=== PATIENT | male | born 1975 | race Caucasian/White ===

== ENCOUNTER 2021-03-04 18:01 | Emergency (ER) | payer OTHER ==
[2021-03-04 18:44] LABS: BASOPHIL 0.5 % (0-2); EOSINOPHIL 0.4 % (0-5); HCT 45.2 % (42.0-52.0); HGB 16.1 g/dl (13.2-18.0); LYMPHOCYTE 15.5 % (15-48); MCH 31.4 pg (25.0-31.0); MCHC 35.6 g/dL (32.0-36.0); MCV 88.3 fL (78.0-100.0); MONOCYTE 3.5 % (0-12); MPV 9.2 fL (6.0-9.5); NEUTROPHIL 79.7 % (41-80); NRBC 0; PLT 445 K/uL (150-400); RBC 5.12 M/uL (4.70-6.00); RDW 11.9 % (11.5-14.0)
[2021-03-04 18:48] LABS: BILIRUBIN NEGATIVE (NEGATIVE); BLOOD NEGATIVE Ery/uL (NEGATIVE); CLARITY CLEAR (CLEAR); COLOR YELLOW (YELLOW); GLUCOSE (U) NORMAL (NORMAL); LEUKOCYTES NEGATIVE Leu/uL (NEGATIVE); NITRITE NEGATIVE (NEGATIVE); PROTEIN NEGATIVE (NEGATIVE); SPECIFIC GRAVITY >=1.030 (1.001-1.030); UROBILINOGEN 0.2 mg/dL (0.2-1.0)
[2021-03-04 19:23] LABS: BUN/CREAT RATIO (CALC) 10.3 RATIO; CREATININE 1.07 mg/dL (0.67-1.17); POTASSIUM 3.9 mmol/L (3.5-5.1)
[2021-03-04 20:52] LABS: BILIRUBIN - TOTAL 1.8 mg/dL (0.2-1.0)
[2021-03-04] MEDS ORDERED: PERCOCET 7.5/321 TAB PO (21:15)
[2021-03-04] MEDS ORDERED: ZOFRAN4 M1 PO (21:15)
== END 2021-03-04 21:40 | disposition home or self-care (01) ==
LOC: FER 18:01
PROVIDERS: Nurse Practitioner Family
DX: K80.80 Other cholelithiasis without obstruction (principal); I10 Essential (primary) hypertension
CPT/HCPCS: 36415; 80048; 81003; 82247; 84450; 84460; 85025; J1885; J2405; J7030

== ENCOUNTER → 2021-04-05 | Day surgery (SDC) | payer OTHER ==
[~2021-04-05] VITALS: Ht 185.4 cm; Wt 161.0 kg
[~2021-04-05] MED LIST: ASPIRIN EC81 MG PO; ONDANSETRON ODT4 MG PO; PERCOCET 7.5/321 TAB PO; PRINIVIL20 MG PO; ZOFRAN4 M1 PO
[2021-04-05 10:03] LABS: ALBUMIN 4.2 g/dL (3.4-5.0); BILIRUBIN - TOTAL 1.5 mg/dL (0.2-1.0); BUN/CREAT RATIO (CALC) 10.6 RATIO; CREATININE 1.13 mg/dL (0.67-1.17); GLOBULIN (CALCULATION) 3.5 g/dL; POTASSIUM 3.8 mmol/L (3.5-5.1); TOTAL PROTEIN 7.7 g/dL (6.4-8.2)
== END | disposition home or self-care (01) ==
LOC: FAS 08:53
PROVIDERS: Surgery
DX: K80.10 Calculus of gallbladder with chronic cholecystitis without obstruction (principal); I10 Essential (primary) hypertension; Z91.041 Radiographic dye allergy status; Z79.82 Long term (current) use of aspirin; K76.0 Fatty (change of) liver, not elsewhere classified; R94.31 Abnormal electrocardiogram [ECG] [EKG]; E80.4 Gilbert syndrome; G47.30 Sleep apnea, unspecified; E66.9 Obesity, unspecified; Z68.42 Body mass index [BMI] 45.0-49.9, adult
CPT/HCPCS: 36415; 80053; 93005; J0295; J0690; J1170; J1885; J2250; J2405; J2550; J2704; J2710; J3010; J7120; Q9967

== ENCOUNTER 2021-04-07 10:41 | Emergency (ER) | payer OTHER ==
[~2021-04-07] VITALS: Ht 182.9 cm; Wt 158.8 kg
[2021-04-07 11:31] LABS: BASOPHIL 0.3 % (0-2); EOSINOPHIL 0.1 % (0-5); HCT 47.6 % (42.0-52.0); HGB 16.7 g/dl (13.2-18.0); LYMPHOCYTE 5.7 % (15-48); MCHC 35.1 g/dL (32.0-36.0); MCV 88.3 fL (78.0-100.0); MONOCYTE 5.4 % (0-12); MPV 9.2 fL (6.0-9.5); NEUTROPHIL 88.1 % (41-80); NRBC 0; PLT 408 K/uL (150-400); RBC 5.39 M/uL (4.70-6.00); RDW 12.4 % (11.5-14.0); WBC 14.3 K/uL (4.0-10.5)
[2021-04-07 11:41] LABS: INR 1.05 (0.9-1.2); PROTHROMBIN TIME 13.1 SECONDS (11.8-13.4)
[2021-04-07 11:57] LABS: BILIRUBIN - TOTAL 3.3 mg/dL (0.2-1.0); BUN/CREAT RATIO (CALC) 12.1 RATIO; C-REACTIVE PROTEIN 5.1 mg/dL (<=0.90); CREATININE 1.07 mg/dL (0.67-1.17); GLOBULIN (CALCULATION) 3.7 g/dL; POTASSIUM 3.9 mmol/L (3.5-5.1); TOTAL PROTEIN 7.7 g/dL (6.4-8.2)
[2021-04-07 12:03] LABS: LACTIC ACID 1.6 mmol/L (0.4-1.9)
[2021-04-07 12:55] LABS: BILIRUBIN 1+ mg/dL (NEGATIVE); BLOOD NEGATIVE Ery/uL (NEGATIVE); CLARITY CLEAR (CLEAR); COLOR YELLOW (YELLOW); GLUCOSE (U) NORMAL (NORMAL); LEUKOCYTES NEGATIVE Leu/uL (NEGATIVE); NITRITE NEGATIVE (NEGATIVE); PROTEIN TRACE (LOW) mg/dL (NEGATIVE); SPECIFIC GRAVITY >=1.030 (1.001-1.030); UROBILINOGEN 0.2 mg/dL (0.2-1.0)
[2021-04-07 13:03] LABS: CORONAVIRUS 2019 SARS-COV-2 NEGATIVE (NEGATIVE); INFLUENZA A NAA NEGATIVE (NEGATIVE)
== END 2021-04-08 01:45 | disposition other institution (70) ==
LOC: FER 10:41
PROVIDERS: Emergency Medicine
DX: J96.01 Acute respiratory failure with hypoxia (principal); I21.4 Non-ST elevation (NSTEMI) myocardial infarction; I26.99 Other pulmonary embolism without acute cor pulmonale; I80.8 Phlebitis and thrombophlebitis of other sites; Z20.822 Contact with and (suspected) exposure to COVID-19; Z91.041 Radiographic dye allergy status
CPT/HCPCS: 36415; 36600; 71250; 71275; 80053; 81003; 82803; 83605; 83615; 83690; 83735; 83880; 84145; 84443; 84484; 85025; 85610; 85730; 86140; 87040; 93005; 93970; C9113; J1200; J1644; J1940; J2543; J2930; J2997; J3370; J7040; J7060; Q9967; U0002

== ENCOUNTER → 2021-11-14 | Day surgery (SDC) | payer OTHER ==
[~2021-11-14] VITALS: Ht 180.3 cm; Wt 153.8 kg
[~2021-11-14] MED LIST changes: +ATORVASTATIN CA20 MG PO; +LISINOPRIL40 MG PO; +METOPROLOL SUCC25 MG PO; +XARELTO20 MG PO
== END | disposition home or self-care (01) ==
LOC: FAS 11-07 08:00
DX: Z12.11 Encounter for screening for malignant neoplasm of colon (principal); D12.3 Benign neoplasm of transverse colon; K57.30 Diverticulosis of large intestine without perforation or abscess without bleeding; I10 Essential (primary) hypertension; E78.00 Pure hypercholesterolemia, unspecified; Z88.0 Allergy status to penicillin; Z91.041 Radiographic dye allergy status; Z79.82 Long term (current) use of aspirin; Z79.01 Long term (current) use of anticoagulants; Z79.899 Other long term (current) drug therapy
CPT/HCPCS: J2704; J7120